=== PATIENT | female | born 2000 | race Caucasian/White ===

== ENCOUNTER 2018-07-17 12:33 | Emergency (ER) | payer OTHER ==
--- NOTE | 2018-07-17 13:07 | EKG REPORT ---
SEVERITY:- OTHERWISE NORMAL ECG - SINUS TACHYCARDIA : Confirmed by: Anton Gupta MD 17-Jul-2018 13:06:54
[2018-07-17] MEDS ORDERED: NORMAL SALINE 1000 ML 1,000 ML IV ONE ×2 (13:24→14:53)
--- NOTE | 2018-07-17 13:25 | ER Document Report ---
ED Medical Screen (RME) - General Chief Complaint: Palpitations Stated Complaint: ELEVEATED HEART RATE Time Seen by Provider: 07/17/18 13:16 Mode of Arrival: Ambulatory Information source: Patient Notes: 18 years old female who is first , on antipsychotic medications, states that heart rate was going around 128 per minute. She is 27 weeks . Therefore present to the ED for no symptoms. Normal exam. TRAVEL OUTSIDE OF THE [place] IN LAST 30 DAYS: No - Related Data Allergies/Adverse Reactions: No Known Allergies Allergy (Verified 07/17/18 13:24) Past Medical History - Social History Chew tobacco use (# tins/day): No Frequency of alcohol use: None Drug Abuse: None Renal/ Medical History: Denies: Hx Peritoneal Dialysis Physical Exam - Vital signs Vitals: Temp Pulse Resp BP Pulse Ox 98.3 F 113 H 16 128/74 H 96 07/17/18 12:51 07/17/18 12:51 07/17/18 12:51 07/17/18 12:51 07/17/18 12:51 Course - Vital Signs Vital signs: Temp Pulse Resp BP Pulse Ox 98.3 F 113 H 16 128/74 H 96 07/17/18 12:51 07/17/18 12:51 07/17/18 12:51 07/17/18 12:51 07/17/18 12:51
--- NOTE | 2018-07-17 14:53 | ER Document Report ---
ED Cardiac - General Chief Complaint: Palpitations Stated Complaint: ELEVEATED HEART RATE Time Seen by Provider: 07/17/18 13:16 Mode of Arrival: Ambulatory Information source: Patient TRAVEL OUTSIDE OF THE [place] IN LAST 30 DAYS: No - HPI Patient complains to provider of: Other - elevated heart rate Was the onset of pain: Sudden Quality of pain: None Notes: Patient is a 18-year-old female presenting to the emergency room today complaining of elevated heart rate, she denies any symptoms or any palpitations , she wears a fit bit and it showed her heart rate at 128, she denies chest pain or shortness of breath, no history of similar symptoms previously, she is approximately 27 weeks , denies any abdominal or pelvic cramping, no vaginal bleeding, no vaginal discharge, no dysuria or hematuria, no nausea, vomiting or diarrhea - Related Data Allergies/Adverse Reactions: No Known Allergies Allergy (Verified 07/17/18 13:24) Past Medical History - General Information source: Patient - Social History Smoking Status: Never Smoker Chew tobacco use (# tins/day): No Frequency of alcohol use: None Drug Abuse: None Family History: Reviewed & Not Pertinent Patient has suicidal ideation: No Patient has homicidal ideation: No Renal/ Medical History: Denies: Hx Peritoneal Dialysis Review of Systems - Review of Systems Constitutional: No symptoms reported EENT: No symptoms reported Cardiovascular: Heart racing Respiratory: No symptoms reported Gastrointestinal: No symptoms reported Genitourinary: No symptoms reported Female Genitourinary: No symptoms reported Musculoskeletal: No symptoms reported Skin: No symptoms reported Hematologic/Lymphatic: No symptoms reported Neurological/Psychological: No symptoms reported -: Yes All other systems reviewed and negative Physical Exam - Vital signs Vitals: Temp Pulse Resp BP Pulse Ox 98.3 F 113 H 16 128/74 H 96 07/17/18 12:51 07/17/18 12:51 07/17/18 12:51 07/17/18 12:51 07/17/18 12:51 Interpretation: Tachycardic - General General appearance: Appears well, Alert - HEENT Head: Normocephalic, Atraumatic Eyes: Normal Pupils: PERRL - Respiratory Respiratory status: No respiratory distress Chest status: Nontender Breath sounds: Normal Chest palpation: Normal - Cardiovascular Rhythm: Regular Heart sounds: Normal auscultation Murmur: No - Abdominal Inspection: Gravid female Distension: No distension Bowel sounds: Normal Tenderness: Nontender Organomegaly: No organomegaly - Back Back: Normal, Nontender - Extremities General upper extremity: Normal inspection, Nontender, Normal color, Normal ROM , Normal temperature General lower extremity: Normal inspection, Nontender, Normal color, Normal ROM , Normal temperature, Normal weight bearing. No: Ha's sign - Neurological Neuro grossly intact: Yes Cognition: Normal Orientation: AAOx4 Julius Coma Scale Eye Opening: Spontaneous Julius Coma Scale Verbal: Oriented Julius Coma Scale Motor: Obeys Commands Julius Coma Scale Total: 15 Speech: Normal Motor strength normal: LUE, RUE, LLE, RLE Sensory: Normal - Psychological Associated symptoms: Normal affect, Normal mood - Skin Skin Temperature: Warm Skin Moisture: Dry Skin Color: Normal Course - Re-evaluation Re-evalutation: 07/17/18 16:[address] Reid, on-call FLOUR DISTRIBUTOR, discussed patient's vital signs, presentation, lab values, he recommended against any transfusion at this point in time, recommended patient continue taking iron and folic acid supplementation, follow-up at [facility] in 2-3 days or return if symptoms worsen, on reevaluation patient's heart rate is in the 80-90 range, after receiving a liter of IV fluids, she was advised to take her daily vitamins, follow-up or return if symptoms worsen, patient acknowledges understanding and agreement with this plan 07/17/18 19:26 - Vital Signs Vital signs: Temp Pulse Resp BP Pulse Ox 98.3 F 113 H 21 H 116/71 99 07/17/18 12:51 07/17/18 12:51 07/17/18 18:43 07/17/18 18:43 07/17/18 18:43 - Laboratory Result Diagrams: 07/17/18 15:25 07/17/18 15:25 Laboratory results interpreted by me: 07/17/18 07/17/18 15:25 15:25 WBC 15.8 H RBC 2.76 L Hgb 7.9 L Hct 23.2 L Band Neutrophils % 1 L Metamyelocytes % 1 H Abs Neuts (Manual) 12.2 H BUN 6 L Creatinine 0.50 L Glucose 72 L Albumin 3.4 L - EKG Interpretation by Me EKG shows normal: Sinus rhythm Rate: Tachycardia Discharge - Discharge Clinical Impression: Tachycardia Anemia Qualifiers: Anemia type: other cause Other causes of anemia: other cause, not classified Qualified Code(s): D64.89 - Other specified anemias Qualifiers: Weeks of gestation: 27 weeks Qualified Code(s): Z3A.27 - 27 weeks gestation of Condition: Stable Disposition: HOME, SELF-CARE Instructions: Anemia ([facility]), Palpitations (Irregular or Rapid Heartrate) ([facility]), ([facility]), Sinus Tachycardia ([facility]) Additional Instructions: Follow up with your primary care provider in one to 2 days. Return to the emergency room immediately if symptoms worsen or any additional concerns.
[2018-07-17 15:44] LABS: HEMATOCRIT 23.2 % (36.0-47.0); MEAN CORPUSCULAR HEMOGLOBIN 28.5 pg (27.0-33.4); MEAN CORPUSCULAR HGB CONC 33.9 g/dL (32.0-36.0); MEAN CORPUSCULAR VOLUME 84 fl (80-97); PLATELET COUNT 299 10^3/uL (150-450); RED BLOOD COUNT 2.76 10^6/uL (3.72-5.28); RED CELL DISTRIBUTION WIDTH 13.3 % (11.5-14.0); WHITE BLOOD COUNT 15.8 10^3/uL (4.0-10.5)
[2018-07-17 15:50] LABS: APPEARANCE,URINE SLIGHTLY-CLOUDY; BILIRUBIN,URINE NEGATIVE (NEGATIVE); COLOR,URINE STRAW; GLUCOSE, URINE NEGATIVE (NEGATIVE); KETONES,URINE NEGATIVE (NEGATIVE); LEUKOCYTE ESTERASE,URINE NEGATIVE (NEGATIVE); NITRITE,URINE NEGATIVE (NEGATIVE); PROTEIN,URINE NEGATIVE (NEGATIVE); URINE SPECIFIC GRAVITY 1.002; UROBILINOGEN,URINE NEGATIVE mg/dL (<2.0)
[2018-07-17 15:54] LABS: ALANINE AMINOTRANSFERASE 22 U/L (9-52); ALBUMIN 3.4 g/dL (3.5-5.0); ALKALINE PHOSPHATASE 79 U/L (38-126); ANION GAP 8 (5-19); ASPARTATE AMINO TRANSFERASE 17 U/L (14-36); BILIRUBIN,DIRECT 0.1 mg/dL (0.0-0.4); BILIRUBIN,TOTAL 0.2 mg/dL (0.2-1.3); BLOOD UREA NITROGEN 6 mg/dL (7-20); CALCIUM 9.3 mg/dL (8.4-10.2); CARBON DIOXIDE 26 mmol/L (22-30); CHLORIDE 104 mmol/L (98-107); GLUCOSE 72 mg/dL (75-110); POTASSIUM 4.2 mmol/L (3.6-5.0); SODIUM 137.6 mmol/L (137-145); TOTAL PROTEIN 6.7 g/dL (6.3-8.2)
[2018-07-17 16:03] LABS: ABSOLUTE LYMPHOCYTES# (MANUAL) 2.5 10^3/uL (0.5-4.7); ABSOLUTE MONOCYTES # (MANUAL) 1.1 10^3/uL (0.1-1.4); ABSOLUTE NEUTROPHILS# (MANUAL) 12.2 10^3/uL (1.7-8.2); BAND NEUTROPHILS % (MANUAL) 1 % (3-5); BASOPHILS % (MANUAL) 0 % (0-2); EOSINOPHILS % (MANUAL) 0 % (0-6); LYMPHOCYTES % (MANUAL) 15 % (13-45); METAMYELOCYTES % (MANUAL) 1 % (0); MONOCYTES % (MANUAL) 7 % (3-13); SEGMENTED NEUTROPHILS % (MAN) 75 % (42-78); TOTAL CELLS COUNTED 100
[2018-07-17 16:04] LABS: OVALOCYTES SLIGHT; PLATELET COMMENT ADEQUATE; POIKILOCYTOSIS SLIGHT
[2018-07-17 16:09] LABS: HEMOGLOBIN 7.9 g/dL (12.0-15.5)
[2018-07-17 18:52] VITALS: BP 116/71
== END 2018-07-17 18:52 | disposition home or self-care (01) ==
LOC: ER 12:33
DX: O26.892 Other specified pregnancy related conditions, second trimester (principal); R00.0 Tachycardia, unspecified; O99.012 Anemia complicating pregnancy, second trimester; D64.9 Anemia, unspecified; Z3A.27 27 weeks gestation of pregnancy
CPT/HCPCS: 93005; 99285; 96360; 96361; 36415; 85025; 80053; 81001; 93010; J7030

== ENCOUNTER 2018-07-19 22:15 | Emergency (ER) | payer OTHER ==
--- NOTE | 2018-07-19 23:02 | ER Document Report ---
ED Medical Screen (RME) - General Chief Complaint: Palpitations Stated Complaint: HEART RACING,SHAKY,HEAD POUNDING Time Seen by Provider: 07/19/18 22:58 Notes: Patient was to this facility on 07/17/2008 team for elevated heart rate and heart palpitations. Patient states she was told she was anemic at that time. States this evening she was feeling lightheaded and dizzy and looked at her fit bit on her wrist and it read 140. This worried the patient so she presents to the emergency room. Patient is 28 weeks at this time. Patient denies any abdominal pain, cramping or vaginal bleeding. Physical exam: Generalized pallor noted to patient's face, lung sounds clear and equal to all, heart rate tachycardic at 110. I have greeted and performed a rapid initial assessment of this patient. A comprehensive ED assessment and evaluation of the patient, analysis of test results and completion of the medical decision making process will be conducted by additional ED providers. TRAVEL OUTSIDE OF THE [place] IN LAST 30 DAYS: No - Related Data Allergies/Adverse Reactions: No Known Allergies Allergy (Verified 07/17/18 13:24) Past Medical History Renal/ Medical History: Denies: Hx Peritoneal Dialysis
[2018-07-19 23:04] VITALS: BP 124/66
--- NOTE | 2018-07-20 08:16 | EKG REPORT ---
SEVERITY:- BORDERLINE ECG - SINUS TACHYCARDIA INFERIOR Q WAVES, PROBABLY NORMAL VARIATION : Confirmed by: Anton Gupta MD 20-Jul-2018 08:16:17
== END 2018-07-20 00:02 | disposition left against medical advice (07) ==
LOC: ER 22:15
DX: O26.93 Pregnancy related conditions, unspecified, third trimester (principal); R00.2 Palpitations; R42 Dizziness and giddiness; Z3A.28 28 weeks gestation of pregnancy
CPT/HCPCS: 93005; 93010; 99281

== ENCOUNTER 2018-09-27 09:08 | Outpatient (CLI) | payer OTHER ==
[2018-09-27 10:40] LABS: ABSOLUTE EOSINOPHILS # (AUTO) 0.1 10^3/uL (0.0-0.6); ABSOLUTE LYMPHOCYTES (AUTO) 1.5 10^3/uL (0.5-4.7); ABSOLUTE MONOCYTES (AUTO) 0.7 10^3/uL (0.1-1.4); ABSOLUTE NEUT (AUTO) 10.1 10^3/uL (1.7-8.2); BASOPHILS % (AUTO) 0.2 % (0-2); EOSINOPHILS % (AUTO) 0.6 % (0-6); HEMATOCRIT 36.8 % (36.0-47.0); HEMOGLOBIN 12.5 g/dL (12.0-15.5); MEAN CORPUSCULAR HEMOGLOBIN 29.1 pg (27.0-33.4); MEAN CORPUSCULAR HGB CONC 34.1 g/dL (32.0-36.0); MEAN CORPUSCULAR VOLUME 85 fl (80-97); MONOCYTES % (AUTO) 5.7 % (3-13); PLATELET COUNT 201 10^3/uL (150-450); RED BLOOD COUNT 4.31 10^6/uL (3.72-5.28); SEGMENTED NEUTROPHILS % (AUTO) 81.5 % (42-78); TOTAL CELLS COUNTED % (AUTO) 100 %; WHITE BLOOD COUNT 12.4 10^3/uL (4.0-10.5)
[2018-09-27 11:37] LABS: ALANINE AMINOTRANSFERASE 24 U/L (9-52); ALBUMIN 3.6 g/dL (3.5-5.0); ALKALINE PHOSPHATASE 132 U/L (38-126); ANION GAP 9 (5-19); ASPARTATE AMINO TRANSFERASE 24 U/L (14-36); BILIRUBIN,DIRECT 0.1 mg/dL (0.0-0.4); BILIRUBIN,TOTAL 0.1 mg/dL (0.2-1.3); BLOOD UREA NITROGEN 7 mg/dL (7-20); CALCIUM 10.3 mg/dL (8.4-10.2); CARBON DIOXIDE 22 mmol/L (22-30); CHLORIDE 105 mmol/L (98-107); GLUCOSE 100 mg/dL (75-110); POTASSIUM 4.2 mmol/L (3.6-5.0); SODIUM 136.2 mmol/L (137-145); TOTAL PROTEIN 6.5 g/dL (6.3-8.2); URIC ACID 5.1 mg/dL (2.5-6.2)
[2018-09-27 11:39] LABS: APPEARANCE,URINE CLOUDY; BILIRUBIN,URINE NEGATIVE (NEGATIVE); GLUCOSE, URINE NEGATIVE (NEGATIVE); KETONES,URINE NEGATIVE (NEGATIVE); LEUKOCYTE ESTERASE,URINE SMALL (NEGATIVE); NITRITE,URINE NEGATIVE (NEGATIVE); PROTEIN,URINE 30 mg/dL (NEGATIVE); URINE SPECIFIC GRAVITY 1.019
[2018-09-27 11:43] LABS: COLOR,URINE YELLOW
[2018-09-27 11:44] LABS: UR PRO/CREAT RATIO RESULT 0.2 mg/mg (0.0-0.2); URINE CREATININE 157.6 mg/dL (16-327); URINE PROTEIN 35.8 mg/dL (<12)
[2018-09-27 11:54] LABS: URINE AMPHETAMINES SCREEN NEGATIVE; URINE BARBITURATES SCREEN NEGATIVE; URINE BENZODIAZEPINES SCREEN NEGATIVE; URINE COCAINE SCREEN NEGATIVE; URINE MARIJUANA (THC) SCREEN NEGATIVE; URINE METHADONE SCREEN NEGATIVE; URINE PHENCYCLIDINE SCREEN NEGATIVE
--- NOTE | 2018-09-27 11:58 | Non Stress Test Report ---
Non Stress Test Datetime Report Generated by CPN: 09/27/2018 11:58 DEMOGRAPHIC EGA NST: 37.5 INDICATION Indication for Study: Ordered by Provider MONITORING Monitor Explained: Monitor Explained; Test Explained; Patient Verbalized Understanding Time on Monitor: 09/27/2018 10:33 Time off Monitor: 09/27/2018 11:46 NST Duration: 73 NST INTERVENTIONS NST Interventions: None Physician Notified NST: Dr. Younger BABY A: [id number] BABY A Movement : Present Contraction Frequency : irregular FHR Baseline : 135 Accelerations : 15X15 Decelerations : None Variability : Moderate 6-25bpm NST Review: Meets Criteria for Reactive NST NST Review and Verified By : , RN NST Results: Reactive NST REPORT Report Trigger: Send Report
[2018-09-27] MEDS ORDERED: RINGERS SOLUTION,LACTATED 1,000 ML IV PRN (21:42)
== END 2018-09-27 11:53 | disposition home or self-care (01) ==
LOC: LC 09:08
PROVIDERS: ATTEND Obstetrics & Gynecology
PROC: 4A1HXCZ Monitoring of Products of Conception, Cardiac Rate, External Approach (ICD-10-PCS; principal; 2018-09-27)
DX: O47.1 False labor at or after 37 completed weeks of gestation (principal); Z3A.37 37 weeks gestation of pregnancy
CPT/HCPCS: 36415; 59025; 80053; 80307; 81001; 82570; 83615; 84156; 84550; 85025; 86592; 86850; 86900; 86901

== ENCOUNTER 2018-09-27 20:01 | Inpatient (IN) | payer OTHER ==
[2018-09-27 20:43] LABS: APPEARANCE,URINE CLOUDY; BILIRUBIN,URINE NEGATIVE (NEGATIVE); COLOR,URINE YELLOW; GLUCOSE, URINE NEGATIVE (NEGATIVE); KETONES,URINE NEGATIVE (NEGATIVE); LEUKOCYTE ESTERASE,URINE MODERATE (NEGATIVE); NITRITE,URINE NEGATIVE (NEGATIVE); PROTEIN,URINE 100 mg/dL (NEGATIVE); URINE SPECIFIC GRAVITY 1.013; UROBILINOGEN,URINE NEGATIVE mg/dL (<2.0)
[2018-09-27 21:05] LABS: URINE AMPHETAMINES SCREEN NEGATIVE; URINE BARBITURATES SCREEN NEGATIVE; URINE BENZODIAZEPINES SCREEN NEGATIVE; URINE COCAINE SCREEN NEGATIVE; URINE MARIJUANA (THC) SCREEN NEGATIVE; URINE METHADONE SCREEN NEGATIVE; URINE PHENCYCLIDINE SCREEN NEGATIVE
--- NOTE | 2018-09-27 21:57 | Admission Physical ---
Datetime Report Generated by CPN: 09/27/2018 21:56 CURRENT ADMISSION Chief Complaint: Suspected Ruptured Membranes Indication for Induction: Not Applicable Admit Impression : Term, Intrauterine ; Ruptured Membranes Admit Plan: Admit to Unit; Initiate Labor Protocol ALLERGIES Medication Allergies: No Medication Allergies: No Known Allergies (09/27/2018) Latex: No Latex Allergies Food Allergies: n/a Environmental Allergies: n/a OBSTETRICAL HISTORY EDC: 10/13/2018 00:00 : 1 Para: 0 Term: 0 : 0 SAB: 0 IAB: 0 Ectopic: 0 Livin Cesareans: 0 VBACs: 0 Multiple Births: 0 Gestational Diabetes: No Rh Sensitization: No Incompetent Cervix: No MYRIAM: No Infertility: No ART Treatment: No Uterine Anomaly: No IUGR: No Hx Previous C/S: No Macrosomia: No Hx Loss/Stillborn: No PIH: No Hx : No Placenta Previa/Abruption: No Depression/PP Depression: No PTL/PROM: No Post Hemorrhage: No Current Procedures: Ultrasound Obstetrical History Comments: G1 - current SEE RECORDS Alcohol: No Marijuana : No Cocaine: No Other Illicit Drugs: No Cigarettes: Never Smoker. 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 Surgery: No Heart Disease: No Hosp/Surgery: No Autoimmune Disorder: No Anesthetic Complications: No Kidney Disease: No Abnormal Pap Smear: No Neuro/Epilepsy: No Psychiatric Disorders: No Other Medical Diseases: No Hepatitis/Liver Disease: No Significant Family History: No Varicosities/Phlebitis: No Trauma/Violence : No Thyroid Dysfunction: No Medical History Comments: Broken back, Dislocated knee, wisdom teeth removal INFECTIOUS HISTORY Gonorrhea: No Genital Herpes: No Chlamydia: No Tuberculosis: No Syphilis: No Hepatitis: No HIV/AIDS Exposure: No Rash or Viral Illness: No HPV: No PHYSICAL EXAM General: Normal HEENT: Normal Neurologic: Normal Thyroid: Normal Heart: Normal Lungs: Normal Breast: Normal Back: Normal Abdomen: Normal Genitourinary Exam: Normal Extremities: Normal DTRs: Normal Pelvic Type: Adequate Vital Signs: Reviewed; Within Normal Limits VAGINAL EXAM Dilatation: 3 Effacement: 100 Station: 0 MEMBRANES Membranes: Ruptured Amniotic Fluid Color: Clear FETUS A EGA: 37.5 Monitoring: External US FHR- Baseline: 120s Accelerations: 15X15 Decelerations: None FHR Category: Category I Admit Comment: SROM at 1900--clear fluid noted ; GBS Neg PLANS FOR LABOR AND DELIVERY Labor and Delivery: None Pain Management: Epidural Feeding Preference: Formula Circumcision: N/A INFORMED CONSENT Signature: with User ID: [email or web address]
[2018-09-27 22:44] LABS: ABSOLUTE EOSINOPHILS # (AUTO) 0.1 10^3/uL (0.0-0.6); ABSOLUTE LYMPHOCYTES (AUTO) 2.2 10^3/uL (0.5-4.7); ABSOLUTE MONOCYTES (AUTO) 0.9 10^3/uL (0.1-1.4); ABSOLUTE NEUT (AUTO) 10.1 10^3/uL (1.7-8.2); BASOPHILS % (AUTO) 0.3 % (0-2); EOSINOPHILS % (AUTO) 0.8 % (0-6); HEMATOCRIT 35.6 % (36.0-47.0); HEMOGLOBIN 12.4 g/dL (12.0-15.5); LYMPHOCYTES % (AUTO) 16.2 % (13-45); MEAN CORPUSCULAR HEMOGLOBIN 29.5 pg (27.0-33.4); MEAN CORPUSCULAR HGB CONC 34.7 g/dL (32.0-36.0); MEAN CORPUSCULAR VOLUME 85 fl (80-97); PLATELET COUNT 192 10^3/uL (150-450); RED CELL DISTRIBUTION WIDTH 18.3 % (11.5-14.0); SEGMENTED NEUTROPHILS % (AUTO) 75.7 % (42-78); TOTAL CELLS COUNTED % (AUTO) 100 %; WHITE BLOOD COUNT 13.3 10^3/uL (4.0-10.5)
[2018-09-28] MEDS ORDERED: OXYTOCIN 10 UNIT/ML VIAL ONE (01:03)
[2018-09-28] MEDS ORDERED: MISOPROSTOL 0.2 MG TABLET ONE (01:04)
[2018-09-28] MEDS ORDERED: LIDOCAINE 1.5%/EPINEPHRINE INJ-PF 30 ML SDV ONE (01:04)
[2018-09-28] MEDS ORDERED: PHENYLEPHRINE HCL INJ/PF 10 MG/1 ML SDV ONE (01:04)
[2018-09-28] MEDS ORDERED: LIDOCAINE 1% INJ-PF (10 MG/ML) 30 ML SDV ONE (01:04)
[2018-09-28] MEDS ORDERED: FENTANYL/BUPIVACAINE/NS/PF 300 MCG/150 ML RTUINJ EPI ONE (01:04)
[2018-09-28] MEDS ORDERED: FENTANYL CITRATE INJ/PF 100 MCG/2 ML AMPUL ONE (01:04)
[2018-09-28] MEDS ORDERED: EPHEDRINE SULFATE INJ 50 MG/1 ML AMPULE ONE (01:04)
[2018-09-28] MEDS ORDERED: BUPIVACAINE HCL 0.25 % INJ/PF (2.5 MG/1 ML) 30 ML VIAL ONE (01:05)
[2018-09-28] MEDS ORDERED: OXYTOCIN/NORMAL SALINE 20 UNIT/1,000 ML RTUINJ ONE (01:05)
[2018-09-28] MEDS ORDERED: ONDANSETRON HCL INJ/PF 4 MG/2 ML SDV ONE (01:12)
[2018-09-28] MEDS ORDERED: ACETAMINOPHEN WITH CODEINE #3 TABLET PO PRN ×2 (03:26)
[2018-09-28] MEDS ORDERED: ZOLPIDEM TARTRATE 5 MG TABLET PO PRN (03:26)
[2018-09-28] MEDS ORDERED: DIBUCAINE 1% OINTMENT 28 GM TP PRN (03:26)
[2018-09-28] MEDS ORDERED: OXYTOCIN/NORMAL SALINE 20 UNIT/1,000 ML RTUINJ IV PRN (03:26)
[2018-09-28] MEDS ORDERED: BENZOCAINE/MENTHOL AEROSOL SPRAY 56 ML TOP PRN (03:26)
[2018-09-28] MEDS ORDERED: MEASLES,MUMPS&RUBELLA VACC/PF 0.5 ML VIAL SUBCUT PRN (03:26)
[2018-09-28] MEDS ORDERED: DIPH/PERTUSS(ACELL)/TETANUS VAC/PF 0.5 ML SYR (>=10YO) IM PRN (03:26)
--- NOTE | 2018-09-28 04:42 | Delivery Summary ---
Del Sum A-C Datetime Report Generated by CPN: 09/28/2018 04:42 DELIVERY PERSONNEL DELIVERY PERSONNEL: [id number] Delivery Doctor:: Glory Das MD Labor and Delivery Nurse:: Bee Marques RNcardiothoracic icu rn Nurse:: Blanka Mae RN Nursery Nurse:: Shannon Feliz RN Motor Setter/CERTIFIED PROSTHETIST/ORTHOTIST: Tahmina Nicholson, BOARD WORKER Additional Personnel: : Blanka Mae RN MATERNAL INFORMATION Delivery Anesthesia: Epidural Medications After Delivery: Pitocin Drip 20 Units/1000ml NSS Estimated Blood Loss (ml): 400 ml Maternal Complications: None Provider Comments: of a viable female at 0238 w/an OA w/ right compound hand and nuchal cord x 1 presentation; APGARS 7, 9; 2nd degree vaginal/perineal lac LABOR SUMMARY EDC: 10/13/2018 00:00 No. Babies in Womb: 1 Labor Anesthesia: Epidural LABOR INFORMATION Complete Dilatation: 09/28/2018 02:13 Oxytocin: N/A Group B Beta Strep: Negative Antibiotics # of Doses: 0 Reason Steroids Not Administered: Not Applicable STAGES OF LABOR Stage 2 hr: 0 Stage 2 min: 25 Stage 3 hr: 0 Stage 3 min: 5 VAGINAL DELIVERY Episiotomy: None Laceration #1: Perineal; Vaginal Laceration Extension #1: Second Degree Laceration Repair: Yes Laceration Repair Note: 2-0 vicryl used for repair Sponge Count Correct: Yes Sharps Count Correct: Yes CSECTION DELIVERY Primary Indication: N/A Secondary Indication: N/A CSection Incidence: N/A Labor: N/A Elective: N/A CSection Incision: N/A BABY A INFORMATION Infant Delivery Date/Time: 09/28/2018 02:38 Method of Delivery: Vaginal Born in Route : No : N/A Forceps: N/A Vacuum Extraction: N/A Shoulder Dystocia : No PRESENTATION/POSITION BABY A Presentation: Cephalic Cephalic Presentation: Vertex Vertex Position: Left Occipital Anterior Breech Presentation: N/A PLACENTA INFORMATION BABY A Placenta Delivery Time : 09/28/2018 02:43 Placenta Method of Delivery: Spontaneous Placenta Status: Delivered SCORES BABY A Heart Rate 1 min: >100 bpm Resp Effort 1 min: Slow, Irregular Reflex Irritability 1 min: Cough or Sneeze or Pulls Away Muscle Tone 1 min: Active Motion Color 1 min: Blue/Pale Resuscitation Effort 1 min: Tactile Stimulation SCORE 1 MIN: 7 Heart Rate 5 min: >100 bpm Resp Effort 5 min: Good Cry Reflex Irritability 5 min: Cough or Sneeze or Pulls Away Muscle Tone 5 min: Active Motion Color 5 min: Body [place], Extremities Blue SCORE 5 MIN: 9 INFANT INFORMATION BABY A Gestational Age at Delivery: 37.6 Gestational Status: Early Term- 37- 38.6 Weeks Outcome : Liveborn Condition : Stable Sex: Female IDENTIFICATION BABY A Verification Date/Time: 09/28/2018 03:20 ID Band Number: [id number] Mother's Name Verified: Yes RN Verifying Infant: THIERNO Thakur RN WEIGHT/LENGTH BABY A Birthweight (gm): 2942 Weight (lb): 6 Weight (oz): 8 Infant Length (in): 20.00 Length (cm): 50.80 CORD INFORMATION BABY A No. Cord Vessels: 3 Nuchal Cord : Around Neck x1, Loose Nuchal Cord- Other: Compound right hand Cord Blood Taken: Yes-For Storage (Mom's Blood type +) Suction: Mouth; Nose BABY B INFORMATION : N/A SIGNATURES Signature: with User ID: [email or web address]
[2018-09-28] MEDS: IBUPROFEN 800 MG TABLET PO SCH ×3 (05:56→21:11)
[2018-09-28] MEDS: DOCUSATE SODIUM 100 MG CAPSULE PO SCH ×2 (09:46→17:38)
[2018-09-28] MEDS: SENNOSIDES/DOCUSATE 8.6-50 MG 1 EACH TABLET PO SCH (09:46)
[2018-09-28] MEDS: PRENATAL VITAMIN W DHA CAPSULE PO SCH (09:46)
[2018-09-28] MEDS: FERROUS SULFATE 325 MG TABLET PO SCH ×2 (09:46→17:38)
--- NOTE | 2018-09-28 10:00 | PDOC PROGRESS REPORT ---
Subjective-OB Progress Note for:: 09/28/18 Physical Exam (OB) Vital Signs: Temp Pulse Resp BP Pulse Ox 98.9 F 114 H 17 115/58 L 96 09/28/18 07:43 09/28/18 07:43 09/28/18 07:43 09/28/18 07:43 09/28/18 07:43 - PIH/Pre-Eclampsia DTR's: 2 + Clonus: Negative Headache: Absent Epigastric Pain: No Visual Changes: No - Lochia Lochia Amount: Small 10-25 ml Lochia Color: Rubra/Red - Abdomen Description: Soft Hernia Present: No Bowel Sounds: Normoactive Flatus Presence: Absent Stool: No Fundal Description: Firm, Midline Fundal Height: u/u - u/2 Objective-Diagnostic Laboratory: 09/27/18 22:30 09/27/18 09/27/18 20:07 22:30 WBC 13.3 H RBC 4.20 Hgb 12.4 Hct 35.6 L MCV 85 MCH 29.5 MCHC 34.7 RDW 18.3 H Plt Count 192 Seg Neutrophils % 75.7 Lymphocytes % 16.2 Monocytes % 7.0 Eosinophils % 0.8 Basophils % 0.3 Absolute Neutrophils 10.1 H Absolute Lymphocytes 2.2 Absolute Monocytes 0.9 Absolute Eosinophils 0.1 Absolute Basophils 0.0 Urine Color YELLOW Urine Appearance CLOUDY Urine pH 7.0 Ur Specific Agenda 1.013 Urine Protein 100 H Urine Glucose (UA) NEGATIVE Urine Ketones NEGATIVE Urine Blood MODERATE H Urine Nitrite NEGATIVE Ur Leukocyte Esterase MODERATE H
[2018-09-29] MEDS: IBUPROFEN 800 MG TABLET PO SCH ×3 (05:24→21:24)
[2018-09-29 07:12] LABS: HEMATOCRIT 29.9 % (36.0-47.0); MEAN CORPUSCULAR HEMOGLOBIN 29.5 pg (27.0-33.4); MEAN CORPUSCULAR HGB CONC 34.5 g/dL (32.0-36.0); MEAN CORPUSCULAR VOLUME 86 fl (80-97); PLATELET COUNT 166 10^3/uL (150-450); RED BLOOD COUNT 3.49 10^6/uL (3.72-5.28); RED CELL DISTRIBUTION WIDTH 18.3 % (11.5-14.0); WHITE BLOOD COUNT 15.1 10^3/uL (4.0-10.5)
[2018-09-29 07:18] LABS: HEMOGLOBIN 10.3 g/dL (12.0-15.5)
[2018-09-29] MEDS: PRENATAL VITAMIN W DHA CAPSULE PO SCH (09:39)
[2018-09-29] MEDS: FERROUS SULFATE 325 MG TABLET PO SCH ×2 (09:39→17:18)
[2018-09-29] MEDS: SENNOSIDES/DOCUSATE 8.6-50 MG 1 EACH TABLET PO SCH (09:39)
[2018-09-29] MEDS: DOCUSATE SODIUM 100 MG CAPSULE PO SCH ×2 (09:39→17:18)
--- NOTE | 2018-09-29 09:49 | PDOC PROGRESS REPORT ---
Subjective-OB Progress Note for:: 09/29/18 Subjective: Ready to go home if baby can be discharged. Physical Exam (OB) Vital Signs: Temp Pulse Resp BP Pulse Ox 98.9 F 106 H 16 115/73 97 09/29/18 07:57 09/29/18 07:57 09/29/18 07:57 09/29/18 07:37 09/29/18 07:57 - PIH/Pre-Eclampsia DTR's: 1 + Clonus: Negative Headache: Absent Epigastric Pain: No Visual Changes: No - Lochia Lochia Amount: Scant < 10 ml Lochia Color: Rubra/Red - Abdomen Description: Soft, Round Hernia Present: No Bowel Sounds: Normoactive Flatus Presence: Present Stool: No Fundal Description: Firm, Midline Fundal Height: u/u - u/2 Objective-Diagnostic Laboratory: 09/29/18 06:46 09/29/18 06:46 WBC 15.1 H RBC 3.49 L Hgb 10.3 L D Hct 29.9 L MCV 86 MCH 29.5 MCHC 34.5 RDW 18.3 H Plt Count 166
[2018-09-30] MEDS: IBUPROFEN 800 MG TABLET PO SCH (06:56)
[2018-09-30 09:43] VITALS: BP 124/64
--- NOTE | 2018-09-30 09:48 | PDOC DISCHARGE SUMMARY ---
Final Diagnosis Discharge Date: 09/30/18 - Final Diagnosis (1) Delivery normal Is this a current diagnosis for this admission?: Yes (2) History depression with anxiety Is this a current diagnosis for this admission?: Yes Discharge Data - Discharge Medication Prescriptions: Ibuprofen [Motrin 800 mg Tablet] 800 mg PO Q8HP PRN #90 tablet PRN Reason: Home Medications: Escitalopram Oxalate [Lexapro] 20 mg PO DAILY 09/27/18 Lamotrigine [Lamictal 25 mg Chewable Tab] 1 tab PO DAILY 09/27/18 Pnv No.95/Ferrous Fum/Folic AC [ Vitamin Tablet] 1 tab PO DAILY 09/27/18 Trazodone HCl 50 mg PO DAILY 09/27/18 Ibuprofen [Motrin 800 mg Tablet] 800 mg PO Q8HP PRN #90 tablet 09/30/18 Procedures: NST Intrapartum Procedure(s): Spontaneous Vaginal Delivery - Diagnosis Test Laboratory: Temp Pulse Resp BP Pulse Ox 98.5 F 88 20 124/64 98 09/30/18 07:42 09/30/18 07:42 09/30/18 07:42 09/30/18 07:42 09/30/18 07:42 09/27/18 09/27/18 09/29/18 20:07 22:30 06:46 RBC 4.20 3.49 L Hgb 12.4 10.3 L D Hct 35.6 L 29.9 L Urine Opiates Screen NEGATIVE - Discharge information/Instructions Discharge Activity: Balance Activity w/Rest, Pelvic Rest Discharge Diet: Regular Disposition: HOME, SELF-CARE Follow up with: [facility] in: 4, Weeks
[2018-09-30] MEDS: FERROUS SULFATE 325 MG TABLET PO SCH (09:59)
[2018-09-30] MEDS: PRENATAL VITAMIN W DHA CAPSULE PO SCH (09:59)
[2018-09-30] MEDS: DOCUSATE SODIUM 100 MG CAPSULE PO SCH (09:59)
[2018-09-30] MEDS: SENNOSIDES/DOCUSATE 8.6-50 MG 1 EACH TABLET PO SCH (09:59)
== END 2018-09-30 14:50 | disposition home or self-care (01) | DRG 807 ==
LOC: LC 20:01 → LR 21:52 → 2S 09-28 04:52
PROVIDERS: ADMIT Obstetrics & Gynecology; ATTEND Obstetrics & Gynecology
PROC: 10E0XZZ Delivery of Products of Conception, External Approach (ICD-10-PCS; principal; 2018-09-28)
PROC: 0KQM0ZZ Repair Perineum Muscle, Open Approach (ICD-10-PCS; 2018-09-28)
DX: O69.81X0 Labor and delivery complicated by cord around neck, without compression, not applicable or unspecified (principal); Z37.0 Single live birth; O32.6XX0 Maternal care for compound presentation, not applicable or unspecified; O70.1 Second degree perineal laceration during delivery; O99.344 Other mental disorders complicating childbirth; F41.8 Other specified anxiety disorders; O99.02 Anemia complicating childbirth; D64.9 Anemia, unspecified; Z3A.37 37 weeks gestation of pregnancy
CPT/HCPCS: 36415; 80307; 81005; 84112; 85025; 85027; 86592; 94760; J2370; J2405; J2590; J3010; J3490

== ENCOUNTER 2018-10-22 23:02 | Emergency (ER) | payer OTHER ==
[2018-10-22] MEDS ORDERED: KETAMINE HCL INJ 500 MG/10 ML VIAL IV ONE (23:18)
--- NOTE | 2018-10-22 23:28 | ER Document Report ---
ED Extremity Problem, Lower - General Chief Complaint: Knee Injury Stated Complaint: FALL Time Seen by Provider: 10/22/18 23:17 Primary Care Provider: JOHN JOVEL DO [ACTIVE STAFF] - Follow up in 3-5 days TRAVEL OUTSIDE OF THE [place] IN LAST 30 DAYS: No - HPI Notes: Patient is a 18-year-old female that presents to the emergency department for chief complaint of right knee pain. Patient states just prior to arrival she had her feet planted and turned to the right. She states she then fell onto her right knee. She states she has dislocated her patella before and believes that is what the problem is. She states severe pain in her right knee. She did receive fentanyl and Dilaudid by EMS prior to arrival. Patient states she is very anxious about having her knee reduced and is demanding to be sedated prior to any further manipulation of her right knee. Is any numbness or tingling in her lower extremity. Past Medical History: Anxiety Past Surgical History: Negative Social History: Denies drugs alcohol and tobacco Family History: Reviewed and noncontributory for presenting illness Allergies: Reviewed, see documented allergy list. REVIEW OF SYSTEMS: CONSTITUTIONAL : No fever No chills No diaphoresis No recent illness EENT: No vision changes No congestion No sore throat CARDIOVASCULAR: No chest pain No palpitations RESPIRATORY: No shortness of breath No cough No difficulty breathing GASTROINTESTINAL: No abdominal pain No nausea No vomiting No diarrhea GENITOURINARY: No dysuria No hematuria No difficulty urinating MUSCULOSKELETAL: No back pain leg pain No arm pain SKIN: No rashes No lesions LYMPHATIC: No swollen, enlarged glands. NEUROLOGICAL: No lightheadedness No headache No weakness No paresthesias PSYCHIATRIC: No anxiety No depression PHYSICAL EXAMINATION: Vital signs reviewed, nursing noted reviewed. GENERAL: Well-appearing, well-nourished and in no acute distress. HEAD: Atraumatic, normocephalic. EYES: Eyes appear normal, extraocular movements intact, sclera anicteric, conjunctiva are normal. ENT: nares patent, oropharynx clear without exudates. Moist mucous membranes. NECK: Normal range of motion, supple without lymphadenopathy LUNGS: Breath sounds clear to auscultation bilaterally and equal. No wheezes rales or rhonchi. HEART: Regular rate and rhythm without murmurs ABDOMEN: Soft, nontender, normoactive bowel sounds. No rebound, guarding, or rigidity. No masses appreciated. EXTREMITIES: Right knee patellar dislocation laterally, knee position flexed. +2/4 bilateral DP and PT pulses. No pitting or edema. NEUROLOGICAL: No focal neurological deficits. Moves all extremities spontaneously Motor and sensory grossly intact on exam. PSYCH: Very anxious, rapid pressured speech, tearful SKIN: Warm, Dry, normal turgor, no rashes or lesions noted on exposed skin - Related Data Allergies/Adverse Reactions: No Known Allergies Allergy (Verified 09/27/18 09:50) Past Medical History - Social History Smoking Status: Never Smoker Family History: Reviewed & Not Pertinent Renal/ Medical History: Denies: Hx Peritoneal Dialysis Physical Exam - Vital signs Vitals: Temp Pulse Resp Pulse Ox 100.0 F 117 H 20 98 10/22/18 23:14 10/22/18 23:14 10/22/18 23:14 10/22/18 23:14 Course - Re-evaluation Re-evalutation: 10/22/18 23:25 Vitals reviewed. Nursing notes reviewed. Patient is tachycardic and appears very anxious. She did receive Dilaudid and fentanyl prior to arrival. I recommended reduction of her patellar dislocation without procedural sedation since she is already received 2 IV narcotics. Patient is adamant that she be sedated. She is very anxious regarding the dislocation reduction. She has no peripheral vascular compromise and is neurologically intact. Patient will be sedated using ketamine for joint relocation. 10/22/18 23:42 Patient tolerated sedation and reduction well. Her knee was placed in a knee immobilizer by myself. She will be provided crutches and naproxen. She was referred to orthopedics for follow-up. - Vital Signs Vital signs: Temp Pulse Resp BP Pulse Ox 100.0 F 117 H 20 98 10/22/18 23:14 10/22/18 23:14 10/22/18 23:14 10/22/18 23:14 - Diagnostic Test Radiology reviewed: Image reviewed, Reports reviewed Procedures - Conscious Sedation Conscious sedation Time started: 11:35 Time completed: 11:40 Consent obtained: Yes Indication: dislocation reduction Prior complications: Procedural sedation Normal healthy pt.: P1. - ASA Classification Airway Evaluation: Normal anatomy Mallampati Classification: Class 1 Used during procedure: Suction available, IV access obtained, Pulse ox on pt., property assessment monitor on pt. Medications administered: Ketamine I personally performed/intraservice time: Sedation, Procedure Complications: No - Immobilization Right Knee Time completed: 23:40 Pre-Proc Neuro Vasc Exam: Normal Immobilizer type: Knee immobilizer Performed by: Provider Post-Proc Neuro Vasc Exam: Normal Alignment checked and good: Yes - Joint Reduction/Fracture Care Right Knee Time completed: 11:35 Consent obtained: Yes Conscious sedation: Yes - ketamine Pre-procedure NV exam: Yes Fracture: Closed Manipulation comment: medial pressure to patella with extention of right knee Post-procedure NV exam: Yes Post-reduction x-ray: Joint reduced Reduction attempts: 1 Complications: No Discharge - Discharge Clinical Impression: Closed dislocation of right patella Qualifiers: Encounter type: initial encounter Qualified Code(s): S83.004A - Unspecified dislocation of right patella, initial encounter Condition: Stable Disposition: HOME, SELF-CARE Instructions: Dislocation of the Patella ([facility]), Ice & Elevation ([facility]), Knee Immobilizing Splint ([facility]) Additional Instructions: Please return to the emergency department if you have any worsening, or concern of your symptoms. Please return to the emergency department if you develop chest pain, difficulty breathing, severe abdominal pain, or ongoing vomiting. Please follow-up with your primary care physician in 2-3 days and any other recommended physicians. If prescribed, take all medications as directed. If you have any questions or concerns do not hesitate to return the emergency department for evaluation. Prescriptions: Naproxen 500 mg PO BID #20 tablet. Referrals: JOHN JOVEL DO [ACTIVE STAFF] - Follow up in 3-5 days
--- NOTE | 2018-10-22 23:48 | RADIOLOGY REPORT (SQ) ---
EXAM DESCRIPTION: XR KNEE 1-2 VIEWS COMPLETED DATE/TME: 10/22/2018 00:00 CLINICAL HISTORY: 18 years, Female, deformity COMPARISON: None. NUMBER OF VIEWS: 2 TECHNIQUE: 2 view right knee LIMITATIONS: None. FINDINGS: The patella is dislocated laterally. No discrete fracture. IMPRESSION: Lateral patellar dislocation copyright 2010 [employer] All Rights Reserved
--- NOTE | 2018-10-23 00:09 | RADIOLOGY REPORT (SQ) ---
EXAM DESCRIPTION: XR KNEE 1-2 VIEWS COMPLETED DATE/TME: 10/22/2018 00:00 CLINICAL HISTORY: 18 years, Female, TRAUMA, POST REDUCTION COMPARISON: Prior right knee from today's date NUMBER OF VIEWS: 2 TECHNIQUE: 2 view right knee LIMITATIONS: None. FINDINGS: Interval reduction of the patellar dislocation. Anatomic alignment. No discrete fracture. IMPRESSION: Interval reduction of the patellar dislocation copyright 2010 [employer]- All Rights Reserved
[2018-10-23 01:42] VITALS: BP 129/81
== END 2018-10-23 01:56 | disposition home or self-care (01) ==
LOC: ER 23:02
DX: S83.004A Unspecified dislocation of right patella, initial encounter (principal); R00.0 Tachycardia, unspecified; X50.0XXA Overexertion from strenuous movement or load, initial encounter
CPT/HCPCS: 99284; 99152; 73560; 27560; L1830; J3490

== ENCOUNTER 2019-05-14 15:54 | Emergency (ER) | payer OTHER ==
[2019-05-14] MEDS ORDERED: ASPIRIN 81 MG TABLET, CHEWABLE PO ONE (16:22)
--- NOTE | 2019-05-14 16:24 | ER Document Report ---
ED Medical Screen (RME) - General Chief Complaint: Chest Pain Stated Complaint: CHEST PAIN/DIZZINESS/HEADACHE/TIRED Time Seen by Provider: 05/14/19 16:17 Primary Care Provider: JONAH SIN MD [Primary Care Provider] - Follow up as needed Mode of Arrival: Ambulatory Information source: Patient Notes: Patient presents emergency department with history of high blood pressure just diagnosed yesterday and started on high blood pressure medication, amlodipine, Dr. Sin. Patient reports chest pain increased when he she yawns or takes a deep breath yesterday today is constant rates it 1/5. Reports family history of cardiac disease as family members were older. Denies fever vomiting diarrhea. Reports she feels very tired. EKG shows sinus tach. I have greeted and performed a rapid initial assessment of this patient. A comprehensive ED assessment and evaluation of the patient, analysis of test results and completion of the medical decision making process will be conducted by additional ED providers. Dictation of this chart was performed using voice recognition software; therefore, there may be some unintended grammatical errors. TRAVEL OUTSIDE OF THE [place] IN LAST 30 DAYS: No - Related Data Allergies/Adverse Reactions: No Known Allergies Allergy (Verified 09/27/18 09:50) Past Medical History - Social History Frequency of alcohol use: Occasional Drug Abuse: None Renal/ Medical History: Denies: Hx Peritoneal Dialysis Physical Exam - Vital signs Vitals: Temp Pulse Resp BP Pulse Ox 98.5 F 101 H 18 123/81 98 05/14/19 16:16 05/14/19 16:16 05/14/19 16:16 05/14/19 16:16 05/14/19 16:16 Course - Vital Signs Vital signs: Temp Pulse Resp BP Pulse Ox 98.5 F 101 H 18 123/81 98 05/14/19 16:16 05/14/19 16:16 05/14/19 16:16 05/14/19 16:16 05/14/19 16:16 Doctor's Discharge - Discharge Referrals: JONAH SIN MD [Primary Care Provider] - Follow up as needed
[2019-05-14 16:58] LABS: ABSOLUTE BASOPHILS # (AUTO) 0.1 10^3/uL (0.0-0.2); ABSOLUTE EOSINOPHILS # (AUTO) 0.1 10^3/uL (0.0-0.6); ABSOLUTE LYMPHOCYTES (AUTO) 3.1 10^3/uL (0.5-4.7); ABSOLUTE MONOCYTES (AUTO) 0.6 10^3/uL (0.1-1.4); ABSOLUTE NEUT (AUTO) 5.4 10^3/uL (1.7-8.2); BASOPHILS % (AUTO) 0.9 % (0-2); EOSINOPHILS % (AUTO) 1.3 % (0-6); HEMATOCRIT 40.7 % (36.0-47.0); HEMOGLOBIN 13.9 g/dL (12.0-15.5); LYMPHOCYTES % (AUTO) 33.1 % (13-45); MEAN CORPUSCULAR HEMOGLOBIN 28.9 pg (27.0-33.4); MEAN CORPUSCULAR HGB CONC 34.2 g/dL (32.0-36.0); MEAN CORPUSCULAR VOLUME 85 fl (80-97); MONOCYTES % (AUTO) 6.5 % (3-13); PLATELET COUNT 304 10^3/uL (150-450); RED BLOOD COUNT 4.81 10^6/uL (3.72-5.28); RED CELL DISTRIBUTION WIDTH 13.6 % (11.5-14.0); SEGMENTED NEUTROPHILS % (AUTO) 58.2 % (42-78); TOTAL CELLS COUNTED % (AUTO) 100 %; WHITE BLOOD COUNT 9.2 10^3/uL (4.0-10.5)
[2019-05-14 17:09] LABS: APPEARANCE,URINE SLIGHTLY-CLOUDY; BILIRUBIN,URINE NEGATIVE (NEGATIVE); COLOR,URINE YELLOW; GLUCOSE, URINE NEGATIVE (NEGATIVE); KETONES,URINE NEGATIVE (NEGATIVE); LEUKOCYTE ESTERASE,URINE SMALL (NEGATIVE); NITRITE,URINE NEGATIVE (NEGATIVE); PROTEIN,URINE NEGATIVE (NEGATIVE); URINE SPECIFIC GRAVITY 1.013; UROBILINOGEN,URINE NEGATIVE mg/dL (<2.0)
--- NOTE | 2019-05-14 17:11 | RADIOLOGY REPORT (SQ) ---
EXAM DESCRIPTION: CHEST 2 VIEWS COMPLETED DATE/TIME: 05/14/2019 5:00 pm REASON FOR STUDY: cp COMPARISON: None. EXAM PARAMETERS: NUMBER OF VIEWS: two views TECHNIQUE: Digital Frontal and Lateral radiographic views of the chest acquired. RADIATION DOSE: NA LIMITATIONS: none FINDINGS: LUNGS AND PLEURA: No opacities, masses or pneumothorax. No pleural effusion. MEDIASTINUM AND HILAR STRUCTURES: No masses or contour abnormalities. HEART AND VASCULAR STRUCTURES: Heart normal size. No evidence for failure. BONES: No acute findings. HARDWARE: None in the chest. OTHER: No other significant finding. IMPRESSION: NO ACUTE RADIOGRAPHIC FINDING IN THE CHEST. TECHNICAL DOCUMENTATION: JOB ID: [id number] [employer]- All Rights Reserved Reading location - IP/workstation name: [email or web address]
[2019-05-14 17:19] LABS: ALBUMIN 4.4 g/dL (3.5-5.0); ALKALINE PHOSPHATASE 61 U/L (38-126); ANION GAP 12 (5-19); ASPARTATE AMINO TRANSFERASE 28 U/L (14-36); BILIRUBIN,DIRECT 0.1 mg/dL (0.0-0.4); BILIRUBIN,TOTAL 0.2 mg/dL (0.2-1.3); BLOOD UREA NITROGEN 12 mg/dL (7-20); CALCIUM 9.9 mg/dL (8.4-10.2); CARBON DIOXIDE 25 mmol/L (22-30); CHLORIDE 102 mmol/L (98-107); CREATINE KINASE 82 U/L (30-135); GLUCOSE 94 mg/dL (75-110); POTASSIUM 4.1 mmol/L (3.6-5.0); TOTAL PROTEIN 7.9 g/dL (6.3-8.2)
[2019-05-14] MEDS ORDERED: RINGERS SOLUTION,LACTATED 1,000 ML IV ONE (20:40)
--- NOTE | 2019-05-14 21:40 | ER Document Report ---
ED General - General Chief Complaint: Chest Pain Stated Complaint: CHEST PAIN/DIZZINESS/HEADACHE/TIRED Time Seen by Provider: 05/14/19 16:17 Primary Care Provider: JONAH SIN MD [Primary Care Provider] - Follow up as needed Mode of Arrival: Ambulatory TRAVEL OUTSIDE OF THE [place] IN LAST 30 DAYS: No - HPI Notes: 19-year-old female with a history of depression, new onset hypertension for which she was restarted on amlodipine, presents with dizziness and chest pain. Patient states that last week her psychiatrist office her systolic blood pressure is 157. Currently follow-up with primary care doctor yesterday, despite having which she describes as a normal systolic of 120, he states she was started on amlodipine. Since then she has had dizziness when standing or changing positions such as leaning over. Has not passed out. Additionally she complains of some sharp left anterolateral chest pain that comes on with yawning and sometimes with deep inspiration. Last couple seconds and goes away, not currently happening. No lower extreme knee pain or swelling, no personal or family history of venous thromboembolism. Moderate intensity, gradual onset, nonradiating. No antecedent vomiting or diarrhea. No other modifying factors, no other associated symptoms, no other provocative or palliative factors. - Related Data Allergies/Adverse Reactions: No Known Allergies Allergy (Verified 09/27/18 09:50) Past Medical History - General Information source: Patient - Social History Smoking Status: Never Smoker Frequency of alcohol use: Occasional Drug Abuse: None Family History: Reviewed & Not Pertinent Patient has suicidal ideation: No Patient has homicidal ideation: No - Medical History Medical History: Other - Includes new onset hypertension, bipolar depression Renal/ Medical History: Denies: Hx Peritoneal Dialysis Review of Systems - Review of Systems Notes: Review of systems as in the history of present illness, otherwise negative x 10 systems. Physical Exam - Vital signs Vitals: Temp Pulse Resp BP Pulse Ox 98.5 F 101 H 18 123/81 98 05/14/19 16:16 05/14/19 16:16 05/14/19 16:16 05/14/19 16:16 05/14/19 16:16 - Notes Notes: General: Well developed . HEENT: Normocephalic, atraumatic. Pupils equal round reactive to light. No JVD. Chest: No trauma. Respiratory: Good air exchange, normal excursion. Cardiac: Regular rhythm. No murmurs or gallops. Abdomen: Soft, benign. Nondistended. Nontender. Back: No asymmetry or gross abnormality. Motor: Grossly normal power and tone. Neurologic: Alert, nonfocal. Cranial nerves II-12 are intact. Sensation intact. Vascular: Well perfused. Normal peripheral pulses. Skin: No petechiae or purpura. Course - Re-evaluation Re-evalutation: 05/14/19 21:38 Patient was evaluated by the [facility] provider prior to my evaluation. Studies / interventions have been ordered by this provider and may still be pending. Well-appearing female the after mentioned symptoms, orthostatic hypotension likely secondary to the initiation of calcium channel boby. Is unclear to me why she had a calcium channel boby started if she had a normal blood pressure and her primary care doctor's office. With regard to her chest pain, this is atypical, remarkably unlikely be ACS and would not pursue this diagnosis. Somewhat atypical and less likely to be venous thromboembolism in the absence of risk factors, however, she has mild tachycardia 101 and is not eligible for PERC rule out. I reviewed labs and EKG and studies done by the [facility] doc, chemistries and extensive work-up are unremarkable. EKG unremarkable. I did indicated to patient that I think she is still relatively low risk for venous thrombi embolism, however, I am unable to completely exclude this without proceeding with d-dimer testing and further work-up. She has declined, we have discussed the risks including missed PE and or disability. She understands the risk but does not wish to pursue further work-up, requesting discharge home. Follow-up with primary care doctor, return if worsening. - Vital Signs Vital signs: Temp Pulse Resp BP Pulse Ox 98.5 F 101 H 18 123/81 98 05/14/19 16:16 05/14/19 16:16 05/14/19 16:16 05/14/19 16:16 05/14/19 16:16 - Laboratory Result Diagrams: 05/14/19 16:31 05/14/19 16:31 Laboratory results interpreted by me: 05/14/19 16:31 Urine Blood LARGE H Ur Leukocyte Esterase SMALL H - EKG Interpretation by Al EKG shows normal: Sinus rhythm, [place], Intervals, QRS Complexes Discharge - Discharge Clinical Impression: Chest pain Qualifiers: Chest pain type: chest pain on breathing Qualified Code(s): R07.1 - Chest pain on breathing; R07.81 - Pleurodynia Condition: Stable Disposition: HOME, SELF-CARE Instructions: Chest Pain of Unclear Cause ([facility]) Referrals: JONAH SIN MD [Primary Care Provider] - Follow up in 3-5 days
[2019-05-14 22:00] VITALS: BP 139/86
--- NOTE | 2019-05-15 09:16 | EKG REPORT ---
SEVERITY:- BORDERLINE ECG - SINUS TACHYCARDIA PROBABLE LEFT ATRIAL ABNORMALITY INFERIOR Q WAVES, PROBABLY NORMAL VARIATION : Confirmed by: Hortencia Cifuentes 15-May-2019 09:16:04
== END 2019-05-14 21:58 | disposition home or self-care (01) ==
LOC: ER 15:54
DX: R07.1 Chest pain on breathing (principal); R07.81 Pleurodynia; R42 Dizziness and giddiness; R51 Headache; I10 Essential (primary) hypertension; Z79.899 Other long term (current) drug therapy
CPT/HCPCS: 36415; 71046; 80053; 81001; 81025; 82550; 84443; 84484; 85025; 93005; 93010; 99285